=== PATIENT | female | born 1985 | race Caucasian/White ===

== ENCOUNTER 2016-12-03 08:00 | Emergency (ER) | payer MEDICAID ==
[~2016-12-03] VITALS: Ht 162.6 cm; Wt 83.9 kg
[2016-12-03 08:46] LABS: Basophils # (auto) 0 uL; Basophils % (auto) 0.4 % (0.0-2.0); Eosinophils # (auto) 0.2 uL; Hematocrit 38.7 % (36.0-46.0); Hemoglobin 12.9 g/dL (12.2-16.2); Lymphocytes # (auto) 2.6 uL; Lymphocytes % (auto) 28.1 % (10.0-50.0); Mean Corpuscular Hemoglobin 29.3 pg (28.0-32.0); Mean Corpuscular Hgb Conc. 33.3 g/dL (32.0-36.0); Mean Corpuscular Volume 87.9 fL (80.0-100.0); Mean Platelet Volume 13.2 fL (7.4-10.4); Monocytes # (auto) 0.5 uL; Monocytes % (auto) 5.4 % (0.0-12.0); Neutrophils % (auto) 64.1 % (37.0-80.0); Platelet Count (auto) 222 10^3/uL (140-450); Red Cell Distribution Width 13.5 % (11.6-16.0); SUSPECT VIEW TRANSMISSION; White Blood Cell 9.4 10^3/uL (4.4-10.8)
[2016-12-03 08:55] LABS: Urine Bilirubin Negative (Negative); Urine Blood TRACE /uL (Negative); Urine Color Yellow (Yellow); Urine Glucose Normal (Normal); Urine Ketone Negative (Negative); Urine Nitrite Negative (Negative); Urine RBC <1 /hpf (0 - 4); Urine Squamous Epithelial Cell FEW /hpf (<5); Urine Urobilinogen Normal (Negative); Urine pH 5.5 (5.0-8.0)
[2016-12-03 09:10] LABS: Albumin 3.8 g/dL (3.4-5.0); BUN/Creatinine Ratio 11.8; Bilirubin, Total 0.3 mg/dL (0.2-1.0); Calcium 8.8 mg/dL (8.5-10.1); Potassium 3.6 mmol/L (3.5-5.1); Total Protein 7.9 g/dL (6.4-8.2)
[2016-12-03] MEDS ORDERED: SODIUM CHLORIDE 0.9% 1,000 ML IVB ONE (10:18)
[2016-12-03 10:20] VITALS: BP 132/69
[2016-12-03 10:37] LABS: Magnesium 2.1 mg/dL (1.6-2.6)
== END 2016-12-03 13:48 | disposition home or self-care (01) ==
LOC: ER 08:00
DX: K52.9 Noninfective gastroenteritis and colitis, unspecified (principal); R73.9 Hyperglycemia, unspecified; E66.9 Obesity, unspecified; Z68.31 Body mass index [BMI] 31.0-31.9, adult; R42 Dizziness and giddiness
CPT/HCPCS: 36415; 80053; 81001; 82962; 83036; 83690; 83735; 84443; 84702; 85025; 96360; 99284; J7030

== ENCOUNTER 2019-04-06 17:24 | Emergency (ER) | payer MEDICAID ==
[~2019-04-06] VITALS: Ht 162.6 cm; Wt 92.1 kg
[2019-04-06 18:40] LABS: Basophils # (auto) 0 uL; Basophils % (auto) 0.3 % (0.0-2.0); Eosinophils # (auto) 0.2 uL; Eosinophils % (auto) 2.2 % (0.0-7.0); Hemoglobin 13.3 g/dL (12.2-16.2); Lymphocytes # (auto) 2.7 uL; Lymphocytes % (auto) 27.9 % (10.0-50.0); Mean Corpuscular Hemoglobin 30.9 pg (28.0-32.0); Mean Corpuscular Hgb Conc. 33.2 g/dL (32.0-36.0); Mean Corpuscular Volume 92.9 fL (80.0-100.0); Monocytes # (auto) 0.5 uL; Monocytes % (auto) 5.7 % (0.0-12.0); Neutrophils # (auto) 6.1 uL; Neutrophils % (auto) 63.9 % (37.0-80.0); Nucleated Red Blood Cells % 0.1 %; Platelet Count (auto) 222 10^3/uL (140-450); Red Blood Cells 4.31 10^6/uL (4.0-5.20); Red Cell Distribution Width 13.6 % (11.8-14.3); White Blood Cell 9.5 10^3/uL (4.4-10.8)
[2019-04-06 19:02] LABS: Albumin 3.6 g/dL (3.4-5.0); Potassium 3.8 mmol/L (3.5-5.1)
[2019-04-06 19:06] LABS: BUN/Creatinine Ratio 13.3; Bilirubin, Total 0.1 mg/dL (0.2-1.0)
[2019-04-06] MEDS ORDERED: SODIUM CHLORIDE 0.9% 1,000 ML IV ONE (19:15)
[2019-04-06 20:56] LABS: Urine Bacteria FEW /hpf (None Seen); Urine Blood 1+ /uL (Negative); Urine Mucus FEW (None Seen); Urine Specific Gravity 1.011 (1.001-1.035); Urine WBC 1 /hpf (0 - 5)
[2019-04-07 00:10] VITALS: BP 120/72
== END 2019-04-07 00:28 | disposition home or self-care (01) ==
LOC: ER 17:27
DX: O02.1 Missed abortion (principal); Z98.890 Other specified postprocedural states
CPT/HCPCS: 36415; 76801; 76817; 80053; 81001; 84702; 85025

== ENCOUNTER 2019-09-12 15:43 | Emergency (ER) | payer MEDICAID ==
[~2019-09-12] VITALS: Ht 162.6 cm; Wt 89.8 kg
[2019-09-12 16:13] VITALS: BP 131/61
== END 2019-09-12 17:42 | disposition home or self-care (01) ==
LOC: ER 15:47
DX: J02.9 Acute pharyngitis, unspecified (principal)

== ENCOUNTER 2020-03-31 03:27 | Emergency (ER) | payer MEDICAID ==
[~2020-03-31] VITALS: Ht 162.6 cm; Wt 83.5 kg
[2020-03-31 04:32] LABS: Urine Bacteria FEW /hpf (None Seen); Urine Blood Negative /uL (Negative); Urine Mucus FEW (None Seen); Urine Specific Gravity 1.026 (1.001-1.035); Urine WBC 11 /hpf (0 - 5)
[2020-03-31 09:56] VITALS: BP 107/59
[2020-03-31 10:15] LABS: Basophils # (auto) 0.1 10 ^3/uL (0-0.2); Basophils % (auto) 0.7 % (0.0-2.0); Eosinophils # (auto) 0.1 10 ^3/uL (0-0.8); Eosinophils % (auto) 0.6 % (0.0-7.0); Hematocrit 41.5 % (36.0-46.0); Hemoglobin 13.6 g/dL (12.2-16.2); Lymphocytes # (auto) 1.8 10 ^3/uL (0.4-5.4); Lymphocytes % (auto) 21.4 % (10.0-50.0); Mean Corpuscular Hemoglobin 30.4 pg (28.0-32.0); Mean Corpuscular Hgb Conc. 32.8 g/dL (32.0-36.0); Mean Corpuscular Volume 92.7 fL (80.0-100.0); Monocytes # (auto) 0.4 10 ^3/uL (0-1.3); Monocytes % (auto) 4.6 % (0.0-12.0); Neutrophils # (auto) 6.3 10 ^3/uL (1.6-8.6); Neutrophils % (auto) 72.7 % (37.0-80.0); Nucleated Red Blood Cells % 0.2 %; Platelet Count (auto) 209 10^3/uL (140-450); Red Blood Cells 4.47 10^6/uL (4.0-5.20); Red Cell Distribution Width 13.6 % (11.8-14.3); White Blood Cell 8.6 10^3/uL (4.4-10.8)
[2020-03-31 10:21] LABS: Albumin 4.3 g/dL (3.4-5.0); Calcium 8.9 mg/dL (8.5-10.1)
[2020-03-31 10:31] LABS: BUN/Creatinine Ratio 9.4; Bilirubin, Total 0.4 mg/dL (0.2-1.0)
[2020-03-31] MEDS ORDERED: cefTRIAXone 1GM/50ML D5W 50 ML IV ONE (10:45)
[2020-03-31] MEDS ORDERED: PROMETHAZINE HCL 25 MG/ML 1ML IV PRN (10:45)
[2020-03-31] MEDS ORDERED: KETOROLAC TROMETH 30 MG/ML 1ML VIAL IV ONE (10:45)
[2020-03-31] MEDS ORDERED: cefTRIAXone SOD 1,000 MG VL ONE (10:50)
== END 2020-03-31 13:02 | disposition home or self-care (01) ==
LOC: ER 03:30
DX: N30.00 Acute cystitis without hematuria (principal)
CPT/HCPCS: 36415; 76856; 80053; 81001; 84702; 85025; 96365; 96375; 99284; J0696; J1885; J2550

== ENCOUNTER → 2022-12-17 | Emergency (ER) | payer MEDICAID | END | disposition left against medical advice (07) | LOC: ER 18:28 | DX: Z48.00 Encounter for change or removal of nonsurgical wound dressing (principal); Z53.21 Procedure and treatment not carried out due to patient leaving prior to being seen by health care provider ==

== ENCOUNTER 2023-03-28 18:39 | Emergency (ER) | payer MEDICAID ==
[~2023-03-28] VITALS: Ht 162.6 cm; Wt 90.0 kg
[2023-03-28 19:28] LABS: Basophils # (auto) 0 10 ^3/uL (0-0.2); Basophils % (auto) 0.4 % (0.0-2.0); Eosinophils # (auto) 0.1 10 ^3/uL (0-0.8); Eosinophils % (auto) 1.1 % (0.0-7.0); Hemoglobin 13.4 g/dL (12.2-16.2); Lymphocytes # (auto) 2.5 10 ^3/uL (0.4-5.4); Lymphocytes % (auto) 27.6 % (10.0-50.0); Mean Corpuscular Hemoglobin 30.2 pg (28.0-32.0); Mean Corpuscular Hgb Conc. 33.5 g/dL (32.0-36.0); Mean Corpuscular Volume 90.2 fL (80.0-100.0); Monocytes # (auto) 0.4 10 ^3/uL (0-1.3); Monocytes % (auto) 4.8 % (0.0-12.0); Neutrophils % (auto) 66.1 % (37.0-80.0); Nucleated Red Blood Cells % 0.1 %; Red Blood Cells 4.43 10^6/uL (4.0-5.20); Red Cell Distribution Width 13.7 % (11.8-14.3); White Blood Cell 9.1 10^3/uL (4.4-10.8)
[2023-03-28 20:04] LABS: Calcium 9.1 mg/dL (8.5-10.1); Potassium 3.5 mmol/L (3.5-5.1)
[2023-03-28 20:06] LABS: BUN/Creatinine Ratio 11.3 (10.0-20.0)
[2023-03-28 20:15] LABS: Bilirubin, Total 0.3 mg/dL (0.2-1.0); Total Protein 7.6 g/dL (6.4-8.2)
[2023-03-28 21:10] LABS: Urine Bacteria FEW /hpf (None Seen); Urine Blood Negative /uL (Negative); Urine Clarity Clear (Clear); Urine Color Yellow (Yellow); Urine Mucus FEW (None Seen); Urine Protein, UAD TRACE (Negative); Urine Specific Gravity 1.023 (1.001-1.035); Urine Urobilinogen Normal (Negative); Urine WBC 2 /hpf (0 - 5); Urine pH 5.5 (5.0-8.0)
[2023-03-28] MEDS ORDERED: KETOROLAC TROMETH 30 MG/ML 1ML VIAL IM ONE (21:45)
[2023-03-28] MEDS ORDERED: NITR-87 PO (21:58)
[2023-03-28 22:04] VITALS: BP 144/65; PULSE 83; RESP 17; TEMP 97.9; O2SAT 98
== END 2023-03-28 22:05 | disposition home or self-care (01) ==
LOC: ER 18:39
DX: N39.0 Urinary tract infection, site not specified (principal); F41.9 Anxiety disorder, unspecified; R51.9 Headache, unspecified; Z98.890 Other specified postprocedural states
CPT/HCPCS: 36415; 71046; 80053; 81001; 84484; 85025; 93005; 96372; 99285; J1885

== ENCOUNTER 2024-08-22 09:59 | Day surgery (SDC) | payer MEDICAID ==
[2024-08-21 11:55] LABS: Basophils # (auto) 0 10 ^3/uL (0-0.2); Basophils % (auto) 0.6 % (0.0-2.0); Eosinophils # (auto) 0.1 10 ^3/uL (0-0.8); Eosinophils % (auto) 1.9 % (0.0-7.0); Hematocrit 39.1 % (36.0-46.0); Hemoglobin 13.2 g/dL (12.2-16.2); Lymphocytes # (auto) 1.9 10 ^3/uL (0.4-5.4); Lymphocytes % (auto) 33.4 % (10.0-50.0); Mean Corpuscular Hemoglobin 31.2 pg (28.0-32.0); Mean Corpuscular Hgb Conc. 33.8 g/dL (32.0-36.0); Mean Corpuscular Volume 92.3 fL (80.0-100.0); Monocytes # (auto) 0.4 10 ^3/uL (0-1.3); Monocytes % (auto) 6.4 % (0.0-12.0); Neutrophils # (auto) 3.3 10 ^3/uL (1.6-8.6); Neutrophils % (auto) 57.7 % (37.0-80.0); Platelet Count (auto) 193 10^3/uL (140-450); Red Blood Cells 4.24 10^6/uL (4.0-5.20); Red Cell Distribution Width 13.5 % (11.8-14.3); White Blood Cell 5.7 10^3/uL (4.4-10.8)
[2024-08-21 12:00] LABS: Alanine Aminotransferase 33 U/L (7-40); Albumin 4.3 g/dL (3.2-4.8); Alkaline Phosphatase 64 U/L (46-116); Anion Gap 4 (5-15); Aspartate Aminotransferase 20 U/L (13-40); BUN/Creatinine Ratio 9.5 (10.0-20.0); Blood Urea Nitrogen 10 mg/dL (9-23); Calcium 9.8 mg/dL (8.7-10.4); Carbon Dioxide 28 mmol/L (20-31); Chloride 106 mmol/L (98-107); Glucose 98 mg/dL (74-106); Potassium 4.1 mmol/L (3.5-5.1); Sodium 138 mmol/L (136-145)
[2024-08-21 12:01] LABS: Bilirubin, Total 0.4 mg/dL (0.2-1.0); Total Protein 7.3 g/dL (5.7-8.2)
[2024-08-21 12:12] LABS: INR 1.05 (0.9-1.15); Partial Thromboplastin Time 27.6 SEC (24.5-34.5); Prothrombin Time 11.1 sec (9.3-11.8)
[~2024-08-22] VITALS: Ht 162.6 cm; Wt 98.9 kg
[~2024-08-22 09:59] MED LIST: ESCI1TAB37 PO; HYDR1TAB97 PO; LORA-205 PO; NITR-87 PO; ONDA-180 PO
[2024-08-22 10:46] VITALS: TEMP 97.7
[2024-08-22] MEDS ORDERED: SODIUM CHLORIDE LOCK 10 ML ONE (11:09)
[2024-08-22] MEDS ORDERED: ONDANSETRON HCL 4 MG/2 ML VIAL ONE (11:26)
[2024-08-22] MEDS: LIDOCAINE VISCOUS 2% 15ML UD ONE (11:26)
[2024-08-22] MEDS: fentaNYL CITRATE 100 MCG/2 ML VL ONE (11:29)
[2024-08-22] MEDS: diphenhdrAMINE HCL 50 MG/1 ML VL ONE (11:29)
[2024-08-22] MEDS: MIDAZOLAM HCL 5 MG/ML-1ML VIAL ONE (11:29)
[2024-08-22 11:40] VITALS: BP 114/70
[2024-08-22 11:44] VITALS: PULSE 76; RESP 18; O2SAT 94
--- NOTE | 2024-08-22 11:44 | DVHOP2 ---
Operative Report DATE OF OPERATION: 08/22/24 PROCEDURE: Upper Endoscopy with biopsy. PREOPERATIVE INDICATION: The patient is a 38 -year-old female undergoing endoscopy for chronic heartburn and GERD POSTOPERATIVE DIAGNOSES: 1. 2-3 cm sliding-type hiatal hernia with a inflammatory nodule at the GE junction from which biopsies were obtained 2. Mild gastroduodenitis otherwise normal examination up to the 2nd and 3rd part of the duodenum PROCEDURE PERFORMED BY: Vangie Perez GI NURSE: Manjula SCOPE: Olympus videoendoscope. ASA CLASS: 2. PREOPERATIVE MEDICATIONS: Versed 5 mg, Fentanyl 100 mcg, Benadryl 50 mg, Zofran 4 mg IV I administered moderate sedation throughout this _11_ minutes procedure. An independent trained observer pushed medications at my direction, and monitored the patient's level of consciousness and physiological status throughout. PROCEDURE IN DETAIL: After obtaining an informed consent, the patient was placed on left lateral decubitus position. The patient was then sedated with the above medications. A bite block was placed between her teeth. The endoscope was then passed through the oropharynx, into the esophagus, and through the stomach and pylorus up to the second and third part of the duodenum. The endoscope was then withdrawn. The 2nd and 3rd part of the duodenal were normal. Duodenal bulb showed mild duodenitis. Duodenal biopsies were obtained. The pre-pyloric area antrum and body showed mild gastritis. Gastric biopsies were obtained. On retroflexion the fundus and cardia were normal. The endoscope was then withdrawn into the distal esophagus. Patient had a 2-3 cm sliding-type hiatal hernia with acute grade a erosive esophagitis and some inflammatory nodule at the GE junction from which biopsies were obtained The remaining distal and proximal esophagus and oropharynx were unremarkable The patient tolerated the procedure well without difficulty. COMPLICATIONS : None SPECIMENS: Duodenal biopsies Gastric biopsies GE junction biopsies DISPOSITION: Stable D/C to home PLAN: 1. Await for biopsy result 2. Will place pt on Protonix 40 mg bid 3. Carafate 1 g p.o. twice a day 4. Lifestyle and dietary modifications for GERD, eating smaller meals not lying down after eating 5. Avoid aspirin NSAIDs smoking alcohol and marijuana 6. Outpatient follow up with me in 4-6 weeks to review results and discuss further management VANGIE PEREZ MD Aug 22, 2024 11:44
== END 2024-08-22 12:25 | disposition home or self-care (01) ==
LOC: GI 09:59
PROVIDERS: ATTEND Internal Medicine Gastroenterology
DX: R11.0 Nausea (principal); K21.00 Gastro-esophageal reflux disease with esophagitis, without bleeding; K29.50 Unspecified chronic gastritis without bleeding; K22.70 Barrett's esophagus without dysplasia; K44.9 Diaphragmatic hernia without obstruction or gangrene; K29.80 Duodenitis without bleeding; Z98.891 History of uterine scar from previous surgery; Z98.890 Other specified postprocedural states
CPT/HCPCS: 36415; 43239; 80053; 84702; 85025; 85610; 85730; 88305; 88312; 88342; J1200; J2250; J2405; J3010; J7030; 99152